=== PATIENT | male | born 1970 | race Caucasian/White ===

== ENCOUNTER 2017-12-05 16:15 | Emergency (ER) | payer BC ==
--- NOTE | 2017-12-05 16:46 | UC ---
Back Pain HPI - HPI Summary HPI Summary: 47 yo male presents with low back pain since this morning. He tells me that he has had back strains in the past, but this feels like the "worst ever". This morning he was working on his car and went to moss picker a very heavy transmission - felt a pull in his lower back that "put him on the ground". He took an excedrin with no relief. Mild radiation of pain to left hip. Denies numbness, tingling, saddle anesthesia, or loss of bowel/bladder control. - History of Current Complaint Stated Complaint: BACK PAIN Time Seen by Provider: 12/05/17 16:46 Hx Obtained From: Patient Timing: Constant Severity Initially: Severe Severity Currently: Severe Pain Intensity: 7 Pain Scale Used: 0-10 Numeric - Allergies/Home Medications Allergies/Adverse Reactions: Allergies Allergy/AdvReac Type Severity Reaction Status Date / Time No Known Allergies Allergy Verified 12/05/17 16:59 PMH/Surg Hx/FS Hx/Imm Hx GI/ History: Gastroesophageal Reflux - Surgical History Surgical History: Yes Surgery Procedure, Year, and Place: Appendectomy post Rupture 4 surgeries afterward - Family History Known Family History: Positive: None - Social History Occupation: Employed Full-time Lives: With Family Alcohol Use: Rare Substance Use Type: None Smoking Status (MU): Former Smoker Type: Cigarettes When Did the Patient Quit Smoking/Using Tobacco: 25 yrs ago Review of Systems Constitutional: Negative Respiratory: Negative Cardiovascular: Negative Gastrointestinal: Negative Genitourinary: Negative Musculoskeletal: Other: - LBP Neurological: Negative Psychological: Negative All Other Systems Reviewed And Are Negative: Yes Physical Exam - Summary Physical Exam Summary: GENERAL: NAD. WDWN. No pain distress. SKIN: No rashes, sores, lesions, or open wounds. NECK: Supple. FROM. Nontender. No lymphadenopathy. CHEST: CTAB. No r/r/w. No accessory muscle use. Breathing comfortably and in no distress. CV: RRR. Without m/r/g. Pulses intact. Brisk cap refill. MSK: TTP over LEFT lumbar region. Pain with flexion and extension of spine. Positive SLR on left. Strength 4/5 on LEFT due to pain. FROM B/L LEs including dorsiflexion and plantar flexion. NEURO: Alert. CN II-XII grossly intact. Sensations intact B/L LEs L3-S1. PSYCH: Age appropriate behavior. Triage Information Reviewed: Yes Vital Signs: Vital Signs: Temp Pulse Resp BP Pulse Ox 97.9 F 70 18 140/95 98 12/05/17 16:54 12/05/17 16:54 12/05/17 16:54 12/05/17 17:37 12/05/17 16:54 Vital Signs Reviewed: Yes Back Pain Course/Dx - Course Course Of Treatment: XR: IMPRESSION: MINOR OSTEOARTHRITIS. NO ACUTE FINDINGS. 30mg Toradol IM givin in clinic. Repeat BP 140/95. Suspect muscle strain vs disc injury. Rx for flexeril and percocet prn - f/u with PCP if symptoms do not improve. iSTOP Reference #: [id number] - Differential Dx/Diagnosis Provider Diagnoses: Low back pain Discharge - Sign-Out/Discharge Documenting (check all that apply): Patient Departure - Discharge Plan Condition: Stable Disposition: HOME Prescriptions: Cyclobenzaprine TAB* [Flexeril 10 MG TAB*] 10 mg PO BID PRN #10 tab PRN Reason: Pain oxyCODONE/Acetamin 5/325 MG* [Percocet 5/325 TAB*] 1 tab PO BID PRN #6 tab MDD 2 PRN Reason: Pain Patient Education Materials: Back Pain (ED), Lower Back Exercises (ED) Referrals: Eitan Kyle MD [Primary Care Provider] - Additional Instructions: If you develop a fever, shortness of breath, chest pain, new or worsening symptoms - please call your PCP or go to the ED. Your blood pressure was high at todays visit. Please see your primary provider within 4 weeks for recheck and re-evaluation. - Billing Disposition and Condition Condition: STABLE Disposition: Home
[2017-12-05] MEDS ORDERED: Ketorolac INJ* 30 MG/ML 1 ML VIAL IM ONE (16:54)
--- NOTE | 2017-12-05 17:30 | RAD ---
INDICATION: Back pain COMPARISON: None TECHNIQUE: Routine PA, lateral, and oblique imaging was performed . FINDINGS: Bones: There are no acute bony findings. There is minor vertebral spurring. Alignment: Normal Disc spaces: The disc spaces are well-maintained Soft tissues: There are no soft tissue abnormalities. IMPRESSION: MINOR OSTEOARTHRITIS. NO ACUTE FINDINGS
[2017-12-05 17:38] VITALS: BP 140/95
== END 2017-12-05 17:48 | disposition home or self-care (01) ==
LOC: UCEAST 16:15
DX: M54.5 Low back pain (principal); Z87.891 Personal history of nicotine dependence
CPT/HCPCS: 72110; 90471; 99202; G0463; J1885

== ENCOUNTER 2017-12-10 07:32 | Emergency (ER) | payer BC ==
[2017-12-10 08:37] VITALS: BP 163/84
--- NOTE | 2017-12-10 11:34 | ED ---
Back Pain - HPI Summary HPI Summary: Patient is a 47-year-old male who presents emergency department for low back pain 5 days. Patient states he had initial injury of lifting a transmission 5 days ago and developed low back pain. Patient denies history of chronic back pain or surgeries. Pain is located to low middle back and radiates to her left buttock and thigh. Patient denies bowel or bladder incontinence or retention. Denies decreased sensation to the perianal region. He notes that his left thigh seems to be "cramping" and makes his leg buckled. Patient otherwise denies leg numbness, tingling or weakness. He has no significant past medical history. Patient was seen at urgent care last week where he had a lumbar x-ray and was prescribed Percocet and Flexeril. Patient states these medications have not helped with this pain and just make him drowsy. He has been taking ibuprofen. Symptoms are mild in severity. Movement makes symptoms worse. Nothing makes symptoms better. - History of Current Complaint Chief Complaint: EDBackInjuryPain Stated Complaint: BACK INJURY Time Seen by Provider: 12/10/17 07:53 Hx Obtained From: Patient Pain Intensity: 4 Pain Scale Used: 0-10 Numeric - Allergies/Home Medications Allergies/Adverse Reactions: Allergies Allergy/AdvReac Type Severity Reaction Status Date / Time No Known Allergies Allergy Verified 12/10/17 07:50 PMH/Surg Hx/FS Hx/Imm Hx Previously Healthy: Yes - Surgical History Surgery Procedure, Year, and Place: Appendectomy post Rupture 4 surgeries afterward Infectious Disease History: No Infectious Disease History: Denies: History Other Infectious Disease, Traveled Outside the [place] in Last 30 Days - Family History Known Family History: Positive: None - Social History Occupation: Employed Full-time Lives: With Family Alcohol Use: Rare Substance Use Type: Reports: Prescribed Smoking Status (MU): Former Smoker Type: Cigarettes Review of Systems Constitutional: Negative Genitourinary: Negative Negative: flank pain, hematuria, incontinence, urgency Positive: Other - Low back pain Neurological: Negative Negative: Weakness, Paresthesia, Numbness All Other Systems Reviewed And Are Negative: Yes Physical Exam Triage Information Reviewed: Yes Vital Signs On Initial Exam: Initial Vitals Temp Pulse Resp BP Pulse Ox 96.8 F 77 18 175/113 98 12/10/17 07:36 12/10/17 07:36 12/10/17 07:36 12/10/17 07:36 08/02/18 07:36 Vital Signs Reviewed: Yes Appearance: Positive: Well-Appearing - Pt. lying on bed in NAD. present. Skin: Positive: Warm, Dry Head/Face: Positive: Normal Head/Face Inspection Eyes: Positive: Normal Neck: Positive: Supple Musculoskeletal: Positive: Other - Low lumbar midline tenderness. Pain over left SI joint. 5/5 strength in bilateral LEs with flexion and dorsiflexion. No neuro deficits. No calf tenderness or edema. Postive straight-leg test on the left Neurological: Positive: Normal, CN Intact II-III Psychiatric: Positive: Affect/Mood Appropriate Diagnostics - Vital Signs Vital Signs Temp Pulse Resp BP Pulse Ox 12/10/17 08:36 96.9 F 74 16 163/84 99 12/10/17 07:36 96.8 F 77 18 175/113 98 - Laboratory Lab Statement: Any lab studies that have been ordered have been reviewed, and results considered in the medical decision making process. Back Pain Course/Dx - Course Course Of Treatment: Patient presenting to the ER for ongoing low back pain after heavy lifting 5 days ago. Patient has no neurological deficits on exam or evidence of cauda equina syndrome. He is afebrile. He did have an x-ray at urgent care which showed mild arthritis. Based on pt.'s symptoms and exam suspect disc herniation. Will try patient on a course of steroids. Advised to continue warm heat and avoid heavy lifting and bending. Certainly advised to call his family doctor today to schedule close follow-up appointment for possible referral for physical therapy, orthopedics, neurosurgery. To return to the ER for loss of bowel or bladder function, leg numbness or weakness. Patient understands and agrees with plan. - Diagnoses Differential Diagnosis/HQI/PQRI: Positive: Arthritis, Cauda Equina Syndrome, Epidural Abscess, Fracture, Herniated Disc, Neoplasm, Strain, Sprain Provider Diagnoses: Low back strain, Disc herniation Discharge - Sign-Out/Discharge Documenting (check all that apply): Patient Departure - Discharge Plan Condition: Good Disposition: HOME Prescriptions: predniSONE TAB* [Deltasone TAB*] 50 mg PO ONCE #5 tab Patient Education Materials: Lumbar Disc Herniation (ED) Referrals: Eitan Kyle MD [Primary Care Provider] - Additional Instructions: Call your PCP today to schedule a follow up appointment You may benefit from physical therapy You may need referred to orthopedics or neurosurgery if symptoms persist or worsen Continue motrin as directed Apply warm compresses Avoid bending and heavy lifting Return to ER for loss of bowel or bladder function, leg numbness or weakness, or if concerned - Billing Disposition and Condition Condition: GOOD Disposition: Home
== END 2017-12-10 08:36 | disposition home or self-care (01) ==
LOC: ED 07:32
DX: S39.012A Strain of muscle, fascia and tendon of lower back, initial encounter (principal); X50.0XXA Overexertion from strenuous movement or load, initial encounter; Y92.9 Unspecified place or not applicable; M51.26 Other intervertebral disc displacement, lumbar region; Z87.891 Personal history of nicotine dependence
CPT/HCPCS: 99282